=== PATIENT | male | born 1940 | race Caucasian/White ===

== ENCOUNTER 2021-08-24 05:17 | Inpatient (IN) ==
[2021-08-18 11:31] LABS: Basophils % 0.3 % (0.0-0.8); Eosinophils # 0.2 10*3/uL (0.0-0.87); Eosinophils % 2.4 % (0.00-10.9); Hematocrit 44.5 VOL% (42.0-52.0); Hemoglobin 14.1 GM/DL (14.0-18.0); Immature Granulocytes % 0.1 %; Immature Granulocytes Absolute 0.01 #; Lymphocytes # 1.1 10*3/uL (1.4-4.0); Lymphocytes % 12.4 % (21.2-54.2); Mean Corpuscular HGB Conc 31.7 GM/DL (32-36); Mean Corpuscular Volume 91.9 FL (87-102); Mean Platelet Volume 11.3 FL (9.6-12.0); Monocytes # 0.9 10*3/uL (0.11-0.8); Monocytes % 10.7 % (1.7-12.7); Neutrophils % 74.1 % (38.7-73.9); Platelet Count 241 T/CUMM (130-400); Red Blood Count 4.84 MC/CUMM (3.8-5.5); Red Cell Distribution Width 13.4 % (9.3-17.3); White Blood Count 8.6 T/CUMM (4-12)
[2021-08-18 11:48] LABS: INR 0.9; PT Patient Result 10.3 SECS (10.5-12.0); Partial Thromboplastin Time 30.1 SECS (23.8-32.1)
[2021-08-18 12:00] LABS: Albumin 3.7 G/DL (3.4-5.0); Bilirubin,Total 0.7 MG/DL (0.20-1.00); Calcium 9.3 MG/DL (8.5-10.1); Osmolality,Calculated 283.3 MOS/KG (273-304); Total Protein 7.3 G/DL (6.4-8.2)
[2021-08-18 12:10] LABS: Amorphous Crystals,Urine Moderate /HPF (Few); Mucus,Urine Many /LPF (Occasional)
[2021-08-18 12:11] LABS: Bilirubin,Urine Negative (Negative); Blood, Urine Negative (Negative); Glucose,Urine (UA) Negative (Negative); Ketones,Urine Trace mg/dL (Negative); Nitrite,Urine Negative (Negative); Protein,Urine Negative (Negative); Urine Appearance Cloudy (Clear); Urine Color Yellow (Yellow); Urine Specific Gravity > 1.030 (1.001-1.035); Urine Urobilinogen 0.2 eU/dL (<2.0)
[2021-08-24] MEDS ORDERED: VANCOMYCIN 1,000 MG VIAL ONE (05:56)
[2021-08-24] MEDS ORDERED: ceFAZolin 1,000 MG VIAL ONE (05:56)
[2021-08-24] MEDS ORDERED: ONDANSETRON 4 MG/2 ML VIAL ONE (06:12)
[2021-08-24] MEDS ORDERED: LIDOCAINE 2% 5 ML VIAL ONE (06:12)
[2021-08-24] MEDS ORDERED: propofoL 200 MG/20 ML VIAL IV ONE ×2 (06:12→07:59)
[2021-08-24] MEDS ORDERED: fentaNYL 100 MCG/2 ML VIAL ONE (06:12)
[2021-08-24] MEDS ORDERED: BUPIVACAINE SPINAL 0.75% 2 ML AMP SPINAL ONE (06:12)
[2021-08-24] MEDS ORDERED: MIDAZOLAM 2 MG/2 ML VIAL ONE (06:12)
[2021-08-24] MEDS ORDERED: SODIUM CHLORIDE 0.9% 100 ML IV ONE (06:12)
[2021-08-24] MEDS ORDERED: PHENYLEPHRINE 1 MG/10 ML SYRINGE IV ONE ×2 (06:13→07:58)
[2021-08-24] MEDS ORDERED: buprenorphine HCL 0.3 MG/ML VIAL ONE (06:13)
[2021-08-24] MEDS ORDERED: ROPIVACAINE 0.5% 30 ML VIAL ONE (06:35)
[2021-08-24] MEDS ORDERED: DEXAMETHASONE 4 MG/1 ML VIAL ONE (06:35)
[2021-08-24] MEDS ORDERED: LIDOCAINE 1% 5 ML VIAL ONE (06:35)
[2021-08-24] MEDS ORDERED: SEVOFLURANE 1 UNIT/15 MINUTE INH ONE (06:36)
[2021-08-24] MEDS: LACTATED RINGERS 1,000 ML IV SCH ×2 (06:55→08:40)
[2021-08-24] MEDS ORDERED: BISACODYL 10 MG SUPP RECTAL PRN (07:00)
[2021-08-24] MEDS ORDERED: MAGNESIUM HYDROXIDE SUSP 30 ML UDCUP PO PRN (07:00)
[2021-08-24] MEDS ORDERED: PROMETHAZINE 25 MG/1 ML VIAL IM PRN (07:00)
[2021-08-24] MEDS ORDERED: TEMAZEPAM 7.5 MG CAPSULE PO PRN (07:00)
[2021-08-24] MEDS ORDERED: MORPHINE 2 MG/1 ML SYRINGE IV PRN ×2 (07:00→07:29)
[2021-08-24] MEDS ORDERED: LACTULOSE 20 GM/30 ML UDCUP PO PRN (07:00)
[2021-08-24] MEDS ORDERED: diphenhydrAMINE CAP 25 MG CAPSULE PO PRN (07:00)
[2021-08-24] MEDS ORDERED: ONDANSETRON 4 MG/2 ML VIAL IV PRN (07:00)
[2021-08-24] MEDS ORDERED: NITROGLYCERIN SL 0.4 MG TABLET SL PRN (07:03)
[2021-08-24] MEDS ORDERED: ACETAMINOPHEN INJ 1,000 MG/100 ML VIAL IV ONE (07:50)
[2021-08-24] MEDS ORDERED: ePHEDrine 50 MG/ML VIAL ONE (08:13)
[2021-08-24] MEDS ORDERED: LACTATED RINGERS 1,000 ML IV ONE (08:32)
[2021-08-24 08:53] LABS: Mucus,Urine Occasional /LPF (Occasional); RBC,Urine 4 /HPF (0-4)
[2021-08-24 08:54] LABS: Bilirubin,Urine Negative (Negative); Blood, Urine Trace mg/dL (Negative); Glucose,Urine (UA) Negative (Negative); Ketones,Urine Negative (Negative); Nitrite,Urine Negative (Negative); Protein,Urine Negative (Negative); Urine Appearance Clear (Clear); Urine Color Yellow (Yellow); Urine Urobilinogen 0.2 eU/dL (<2.0)
[2021-08-24] MEDS: MULTIVITAMIN (CENTRUM) TABLET PO SCH (15:11)
[2021-08-24] MEDS: ceFAZolin 2,000 MG/50 ML DUPLEX IV SCH ×2 (15:22→21:50)
[2021-08-24] MEDS: ROSUVASTATIN 10 MG TABLET PO SCH (17:51)
[2021-08-24] MEDS: carvediloL 3.125 MG TABLET PO SCH (17:51)
[2021-08-24] MEDS: APIXABAN 5 MG TABLET PO SCH (21:50)
[2021-08-24] MEDS: DOCUSATE SODIUM 100 MG CAPSULE PO SCH (21:50)
[2021-08-25 04:51] LABS: Basophils % 0.1 % (0.0-0.8); Hematocrit 33.4 VOL% (42.0-52.0); Hemoglobin 10.8 GM/DL (14.0-18.0); Immature Granulocytes % 0.7 %; Lymphocytes # 0.8 10*3/uL (1.4-4.0); Mean Corpuscular HGB Conc 32.3 GM/DL (32-36); Mean Corpuscular Volume 90.8 FL (87-102); Mean Platelet Volume 10.3 FL (9.6-12.0); Monocytes # 1.7 10*3/uL (0.11-0.8); Monocytes % 12.4 % (1.7-12.7); Neutrophils % 80.8 % (38.7-73.9); Platelet Count 158 T/CUMM (130-400); Red Blood Count 3.68 MC/CUMM (3.8-5.5); Red Cell Distribution Width 13.1 % (9.3-17.3)
[2021-08-25 05:11] LABS: Calcium 8.3 MG/DL (8.5-10.1); Osmolality,Calculated 278.5 MOS/KG (273-304)
[2021-08-25] MEDS ORDERED: ACETAMINOPHEN 325 MG TABLET PO PRN (07:02)
[2021-08-25] MEDS: DOCUSATE SODIUM 100 MG CAPSULE PO SCH ×2 (09:05→20:07)
[2021-08-25] MEDS: MULTIVITAMIN (CENTRUM) TABLET PO SCH (09:05)
[2021-08-25] MEDS: APIXABAN 5 MG TABLET PO SCH ×2 (09:06→20:07)
[2021-08-25] MEDS: ASPIRIN EC 81 MG TABLET PO SCH (09:06)
[2021-08-25] MEDS: carvediloL 3.125 MG TABLET PO SCH ×2 (09:06→17:28)
[2021-08-25] MEDS: PANTOPRAZOLE 40 MG TABLET PO SCH (09:06)
[2021-08-25] MEDS: LACTATED RINGERS 1,000 ML IV SCH (10:16)
[2021-08-25] MEDS: ROSUVASTATIN 10 MG TABLET PO SCH (17:27)
[2021-08-26] MEDS: PANTOPRAZOLE 40 MG TABLET PO SCH (09:39)
[2021-08-26] MEDS: APIXABAN 5 MG TABLET PO SCH ×2 (09:39→20:20)
[2021-08-26] MEDS: carvediloL 3.125 MG TABLET PO SCH ×2 (09:39→17:12)
[2021-08-26] MEDS: DOCUSATE SODIUM 100 MG CAPSULE PO SCH ×2 (09:39→20:20)
[2021-08-26] MEDS: ASPIRIN EC 81 MG TABLET PO SCH (09:39)
[2021-08-26] MEDS: MULTIVITAMIN (CENTRUM) TABLET PO SCH (09:39)
[2021-08-26] MEDS: ROSUVASTATIN 10 MG TABLET PO SCH (17:12)
[2021-08-27] MEDS: ASPIRIN EC 81 MG TABLET PO SCH (08:35)
[2021-08-27] MEDS: APIXABAN 5 MG TABLET PO SCH (08:36)
[2021-08-27] MEDS: carvediloL 3.125 MG TABLET PO SCH (08:36)
[2021-08-27] MEDS: PANTOPRAZOLE 40 MG TABLET PO SCH (08:36)
[2021-08-27] MEDS: DOCUSATE SODIUM 100 MG CAPSULE PO SCH (08:36)
[2021-08-27] MEDS: MULTIVITAMIN (CENTRUM) TABLET PO SCH (08:36)
[2021-08-27 11:41] VITALS: BP 134/69
== END 2021-08-27 15:15 | disposition home health service (06) | DRG 470 ==
LOC: N.SDSINP 05:17 → N.3E 12:17
PROVIDERS: ADMIT Orthopaedic Surgery; ATTEND Orthopaedic Surgery